=== PATIENT | female | born 1955 | race Caucasian/White ===

== ENCOUNTER → 2017-03-10 | Outpatient (CLI) | payer MEDICARE | LOC: RAD 09:11 | DX: R05 Cough (principal) ==

== ENCOUNTER → 2018-10-27 | Outpatient (CLI) | payer MEDICARE | LOC: RAD 10:14 | DX: M25.551 Pain in right hip (principal) ==

== ENCOUNTER → 2021-01-06 | Outpatient (CLI) | payer MEDICARE ==
[2021-01-06 12:54] LABS: EOS # 0.1 (0.04-0.40); EOS % 1.9 % (1.0-5.0); HEMATOCRIT 45.7 % (37.0-47.0); HEMOGLOBIN 14.9 g/dL (12.5-16.0); LYMPH# 1.9 (1.50-4.00); MEAN CELL VOLUME 95 fl (78-100); MEAN CORPUSCULAR HEMOGLOBIN 31 pg (27-31); MEAN CORPUSCULAR HGB CONC 33 g/dL (33-37); MEAN PLATELET VOLUME 9.6 fl (7.4-10.4); MONO # 0.5 (0.20-0.80); NEU # 3.8 (1.40-6.50); PLATELET COUNT 271 K/mm3 (130-400); RED CELL DISTRIBUTION WIDTH 13.5 % (11.5-14.5); WHITE BLOOD COUNT 6.3 K/mm3 (4.8-10.8)
[2021-01-06 13:02] LABS: ALBUMIN 4.3 g/dL (3.4-4.8); POTASSIUM 3.8 mmol/L (3.5-5.1)
[2021-01-06 13:03] LABS: CALCIUM 10.9 mg/dL (8.3-10.5)
[2021-01-06 13:04] LABS: TOTAL PROTEIN 7.5 g/dL (6.2-8.1)
[2021-01-06 13:06] LABS: TOTAL BILIRUBIN 0.9 mg/dL (0.2-1.2)
[2021-01-06 13:48] LABS: ERYTHROCYTE SEDIMENTATION RATE 6 mm/hr (0-30)
== END ==
LOC: LAB 12:29
PROVIDERS: Internal Medicine
DX: E78.2 Mixed hyperlipidemia (principal); K90.9 Intestinal malabsorption, unspecified; F33.1 Major depressive disorder, recurrent, moderate

== ENCOUNTER → 2021-02-09 | Outpatient (CLI) | payer MEDICARE ==
[2021-02-09 12:13] LABS: EOS # 0.1 (0.04-0.40); EOS % 1.4 % (1.0-5.0); HEMATOCRIT 47.7 % (37.0-47.0); HEMOGLOBIN 15.1 g/dL (12.5-16.0); LYMPH# 1.5 (1.50-4.00); MEAN CELL VOLUME 97 fl (78-100); MEAN CORPUSCULAR HEMOGLOBIN 31 pg (27-31); MEAN CORPUSCULAR HGB CONC 32 g/dL (33-37); MEAN PLATELET VOLUME 9.6 fl (7.4-10.4); MONO # 0.6 (0.20-0.80); NEU # 5.5 (1.40-6.50); PLATELET COUNT 232 K/mm3 (130-400); RED CELL DISTRIBUTION WIDTH 13.5 % (11.5-14.5); WHITE BLOOD COUNT 7.8 K/mm3 (4.8-10.8)
[2021-02-09 12:45] LABS: ALBUMIN 4.2 g/dL (3.4-4.8); POTASSIUM 4.2 mmol/L (3.5-5.1)
[2021-02-09 12:46] LABS: CALCIUM 10.6 mg/dL (8.3-10.5)
[2021-02-09 12:48] LABS: TOTAL PROTEIN 7.1 g/dL (6.2-8.1)
[2021-02-09 12:49] LABS: TOTAL BILIRUBIN 0.5 mg/dL (0.2-1.2)
== END ==
LOC: AMSURD 11:52
PROVIDERS: Internal Medicine
DX: R06.00 Dyspnea, unspecified (principal)

== ENCOUNTER → 2023-02-14 | Day surgery (SDC) | payer MEDICARE | LOC: MSO 08:01 | DX: Z12.11 Encounter for screening for malignant neoplasm of colon (principal); R19.5 Other fecal abnormalities | CPT/HCPCS: 00812; J2704; J7120 ==

== ENCOUNTER → 2023-12-08 | Outpatient (CLI) | payer MEDICARE ==
[2023-12-08 12:14] LABS: BASO # 0.03 K/mm3 (0.02-0.10); EOS # 0.18 K/mm3 (0.04-0.40); EOS % 3.3 % (1.0-5.0); HEMATOCRIT 44.6 % (37.0-47.0); LYMPH# 1.49 K/mm3 (1.50-4.00); MEAN CELL VOLUME 94 fl (78-100); MEAN CORPUSCULAR HEMOGLOBIN 31 pg (27-31); MEAN CORPUSCULAR HGB CONC 34 g/dL (33-37); MEAN PLATELET VOLUME 9.7 fl (7.4-10.4); MONO # 0.49 K/mm3 (0.20-0.80); NEU # 3.19 K/mm3 (1.40-6.50); PLATELET COUNT 239 K/mm3 (130-400); RED BLOOD COUNT 4.77 M/mm3 (4.10-5.30); RED CELL DISTRIBUTION WIDTH 12.7 % (11.5-14.5); WHITE BLOOD COUNT 5.4 K/mm3 (4.8-10.8)
[2023-12-08 12:26] LABS: ALBUMIN 4.2 g/dL (3.4-4.8)
[2023-12-08 12:27] LABS: CALCIUM 10.9 mg/dL (8.3-10.5)
[2023-12-08 12:31] LABS: TOTAL BILIRUBIN 0.6 mg/dL (0.2-1.2)
[2023-12-08 12:35] LABS: MAGNESIUM 1.83 mg/dL (1.60-2.60)
[2023-12-08 20:50] LABS: PTH,INTACT 111.9 pg/mL (6.6-88.9)
[2023-12-08 21:05] LABS: FOLATE (FOLIC ACID) 17.6 ng/mL (2.0-20.0); HEPATITIS C VIRUS ANTIBODY Negative (Negative)
[2023-12-08 21:09] LABS: CALCIUM, IONIZED, SERUM 1.35 mmol/L (1.19-1.41)
[2023-12-09 11:22] LABS: ANA SCREEN with REFLEX Negative (Negative)
[2023-12-12 14:10] LABS: VITAMIN B1 150.5 nmol/L (())
[2023-12-16 11:12] LABS: ALPHA 1 GLOBULINS (IEP) 0.2 g/dL (0.0-0.4); ALPHA 2 GLOBULINS (IEP) 0.7 g/dL (0.4-1.0); BETA GLOBULINS (IEP) 0.8 g/dL (0.7-1.3); GAMMA GLOBULINS (IEP) 1.1 g/dL (0.4-1.8); M SPIKE 1 (IEP) Not Observed g/dL (())
== END ==
LOC: LAB 11:06
PROVIDERS: Internal Medicine
DX: Z11.4 Encounter for screening for human immunodeficiency virus [HIV] (principal); Z11.59 Encounter for screening for other viral diseases; K90.9 Intestinal malabsorption, unspecified; E78.2 Mixed hyperlipidemia; F33.1 Major depressive disorder, recurrent, moderate; G60.9 Hereditary and idiopathic neuropathy, unspecified

== ENCOUNTER → 2024-12-07 | Outpatient (CLI) | payer MEDICARE ==
[2024-12-07 11:36] LABS: ALBUMIN 4.1 g/dL (3.4-4.8)
[2024-12-07 11:37] LABS: CALCIUM 10.8 mg/dL (8.3-10.5)
[2024-12-07 11:39] LABS: TOTAL PROTEIN 7.2 g/dL (6.2-8.1)
[2024-12-07 11:41] LABS: TOTAL BILIRUBIN 0.5 mg/dL (0.2-1.2)
[2024-12-07 11:46] LABS: MAGNESIUM 1.88 mg/dL (1.60-2.60)
[2024-12-07 11:56] LABS: BASO # 0.02 K/mm3 (0.02-0.10); EOS # 0.13 K/mm3 (0.04-0.40); EOS % 2.2 % (1.0-5.0); HEMATOCRIT 44.4 % (37.0-47.0); HEMOGLOBIN 14.7 g/dL (12.5-16.0); LYMPH# 1.42 K/mm3 (1.50-4.00); MEAN CELL VOLUME 96 fl (78-100); MEAN CORPUSCULAR HEMOGLOBIN 32 pg (27-31); MEAN CORPUSCULAR HGB CONC 33 g/dL (33-37); MEAN PLATELET VOLUME 9.9 fl (7.4-10.4); NEU # 3.93 K/mm3 (1.40-6.50); PLATELET COUNT 241 K/mm3 (130-400); RED BLOOD COUNT 4.63 M/mm3 (4.10-5.30); RED CELL DISTRIBUTION WIDTH 12.6 % (11.5-14.5); WHITE BLOOD COUNT 5.9 K/mm3 (4.8-10.8)
[2024-12-07 22:58] LABS: CALCIUM, IONIZED, SERUM 1.37 mmol/L (1.19-1.41)
== END ==
LOC: LAB 10:52
PROVIDERS: Internal Medicine
DX: K90.9 Intestinal malabsorption, unspecified (principal); E78.2 Mixed hyperlipidemia; F33.1 Major depressive disorder, recurrent, moderate; R73.9 Hyperglycemia, unspecified; E21.3 Hyperparathyroidism, unspecified